=== PATIENT | male | born 1955 | race Two or more races ===

== ENCOUNTER 2024-09-11 05:33 | Inpatient (IN) | payer OTHER ==
[2024-09-06 07:55] VITALS: BP 151/88
[2024-09-06 08:23] LABS: COVID-19 AG NEGATIVE (NEGATIVE)
[2024-09-06 08:41] LABS: INR 1.05; PARTIAL THROMBOPLASTIN TIME 25.1 SECONDS (22.0-34.0); PROTHROMBIN TIME 11.4 SECONDS (9.0-11.5)
[2024-09-06 08:54] LABS: URINE APPEARANCE Clear; URINE BILIRRUBIN Negative (NEGATIVE); URINE BLOOD Negative; URINE COLOR Yellow; URINE GLUCOSE Negative (NEGATIVE); URINE KETONE Negative (NEGATIVE); URINE LEUKOCYTE Negative; URINE NITRATE Negative; URINE PROTEIN Negative (NEGATIVE); URINE UROBILINOGEN 0.2 E.U./dl
[2024-09-06 08:58] LABS: URINE RBC 3.2 uL (0.0-20.8); URINE WBC 8.1 uL (0.0-23.2)
[2024-09-06 09:08] LABS: URINE EPITHELIAL CELLS 0.9 uL (0.0-38.8)
[2024-09-06 09:17] LABS: RH POSITIVE
[~2024-09-11] VITALS: Ht 33 cm; Wt 93.0 kg
[~2024-09-11 05:33] MED LIST: BUDESONIDE EC3 M1; MONTELUKAST SODI4 M1; NIFEDIPINE20 MG; PROAIR RESPICL90 MCG IH; PROSCAR5 MG PO; SIMVASTATIN80 MG; TAMS0.4C PO; ZESTRIL20 MG PO
[2024-09-11] MEDS ORDERED: CEFAZOLIN SODIUM 1,000 MG VIAL ONE (10:49)
[2024-09-11] MEDS ORDERED: ENOXAPARIN SODIUM 40 MG/0.4 ML SYRINGE SUBCUTANEO ONE (10:50)
[2024-09-11] MEDS ORDERED: HEMOSTATIC MATRIX 1 KIT KIT TOP ONE (11:35)
[2024-09-11] MEDS ORDERED: BUPIVACAINE HCL/MPF 0.5% 30ML VIAL ONE (11:35)
[2024-09-11] MEDS ORDERED: SURGIFLO APPLICATOR 1 EACH APPL TOP ONE (11:35)
[2024-09-11] MEDS ORDERED: SUGAMMADEX SODIUM 200 MG/2 ML VIAL IV ONE (16:26)
[2024-09-11] MEDS ORDERED: ONDANSETRON HCL 2 MG/ML VIAL IV PRN (17:00)
[2024-09-11] MEDS ORDERED: MORPHINE SULFATE 4 MG/ML VIAL IV PRN (17:00)
[2024-09-11] MEDS ORDERED: OxyCODONE HCL/APAP UD (PERCOCET) PO PRN (17:00)
[2024-09-11] MEDS ORDERED: RINGERS SOLUTION,LACTATED 1,000 ML IV SCH (17:00)
[2024-09-11] MEDS ORDERED: ALBUTEROL SULFATE 3 ML/2.5 MG AMPUL.NEB IH PRN (17:00)
[2024-09-11] MEDS ORDERED: POLYETHYLENE GLYCOL 3350 17 GM BLIST.PACK PO SCH (17:00)
[2024-09-11] MEDS ORDERED: GABAPENTIN 300 MG CAPSULE PO SCH (17:00)
[2024-09-11] MEDS ORDERED: ONDANSETRON HCL 2 MG/ML VIAL ONE (19:44)
[2024-09-11] MEDS ORDERED: MORPHINE SULFATE 4 MG/ML VIAL IV ONE (19:50)
[2024-09-11 20:00] VITALS: BP 150/89; O2SAT 94
[2024-09-11] MEDS ORDERED: CEFAZOLIN SODIUM 1,000 MG VIAL IV SCH (21:00)
[2024-09-11] MEDS ORDERED: FAMOTIDINE/PF 20 MG/2 ML VIAL IV SCH (21:00)
[2024-09-12 01:41] VITALS: BP 128/79; O2SAT 94
[2024-09-12 07:41] LABS: BASO % 0.1 % (0.1-1.2); EOS # 0.01 (0.04-0.54); EOS % 0.1 % (0.7-7.0); HEMATOCRIT 37.5 % (40.1-51.0); HEMOGLOBIN 12.6 g/dL (13.7-17.5); LYMPH # 1.12 (1.18-3.74); LYMPH % 12.6 % (19.3-53.1); MEAN CORPUSCULAR HEMOGLOBIN 34.9 pg (25.6-32.2); MONO # 1.01 (0.24-0.82); MONO % 11.4 % (4.7-12.5); NEUT % 75.4 % (34.0-71.1); PLATELET COUNT 609 K/uL (163-369); RED BLOOD COUNT 3.61 M/uL (4.63-6.08); RED CELL DISTRIBUTION WIDTH 13.8 % (11.6-14.4)
[2024-09-12 08:08] LABS: ALBUMIN 3.5 gm/dL (3.4-5.0); CALCIUM 8.6 mg/dL (8.5-10.1); CREATININE SERUM 1.02 mg/dL (0.70-1.30); GFR 72.2; PHOSPHOROUS 3.4 mg/dL (2.5-4.9); POTASSIUM 4.21 mEq/L (3.5-5.1)
[2024-09-12 08:56] VITALS: BP 146/78; O2SAT 95
[2024-09-12] MEDS ORDERED: MONTELUKAST SODIUM 10 MG TABLET PO SCH (09:00)
[2024-09-12] MEDS ORDERED: NIFEDIPINE 20 MG CAPSULE PO SCH (09:00)
[2024-09-12] MEDS ORDERED: LISINOPRIL 20 MG TABLET PO SCH (09:00)
[2024-09-12] MEDS ORDERED: ENOXAPARIN SODIUM 40 MG/0.4 ML SYRINGE SUBCUTANEO SCH (09:00)
== END 2024-09-12 16:15 | disposition home or self-care (01) | DRG 708 ==
LOC: CIR.AMB 05:33 → SURH 10:00 → EDSTATUS 10:00 → CIR.AMB 10:00 → SURG 18:23
PROVIDERS: ADMIT Urology; ATTEND Urology
PROC: 8E0W4CZ Robotic Assisted Procedure of Trunk Region, Percutaneous Endoscopic Approach (ICD-10-PCS; 2024-09-11)
PROC: 0VT04ZZ Resection of Prostate, Percutaneous Endoscopic Approach (ICD-10-PCS; principal; 2024-09-11 10:30)
DX: C61 Malignant neoplasm of prostate (principal)
CPT/HCPCS: 55866; S2900